=== PATIENT | male | born 1965 | race Caucasian/White ===

== ENCOUNTER 2020-11-24 16:52 | Emergency (ER) | payer SELFPAY ==
[2020-11-24 17:08] VITALS: BMI 48.8
[2020-11-24] MEDS ORDERED: ACETAMINOPHEN 1000 MG/100 ML VIAL IVPB ONE (19:38)
[2020-11-24] MEDS ORDERED: ACETAMINOPHEN INJECTION 100 ML IVPB ONE (19:41)
[2020-11-24 21:52] LABS: CHLORIDE 97 mmol/L (98-107); SODIUM 134 mmol/L (136-145)
[2020-11-24 21:57] LABS: ALBUMIN 3.7 g/dl (3.4-5.0); CALCIUM 9.4 mg/dL (8.5-10.1)
[2020-11-24 21:58] LABS: ANION GAP 12 MMOL/L (8-16); CO2 25 mmol/L (21-32); GLUCOSE,RANDOM 240 mg/dL (74-106)
[2020-11-24 22:00] LABS: BASO % 0.2 % (0-2.0); EOS % 0.1 % (0-4.5); HEMOGLOBIN 15.5 GM/dL (11.7-16.9); LYMPH % 8.2 % (8-40); MCH 33.8 pg (25.7-33.7); MCHC 35.1 g/dl (32.0-35.9); MEAN CELL VOLUME 96.1 fl (80-96); MEAN PLT VOLUME 9.6 fl (7.5-11.1); MONO % 5.5 % (3.8-10.2); PLATELET COUNT 187 10^3/uL (134-434); RBC 4.58 M/mm3 (4.00-5.60); RDW 13.3 % (11.9-15.9); SGPT/ALT 29 U/L (13-61); WHITE BLOOD COUNT 10.4 K/mm3 (4.0-10.0)
[2020-11-24 22:01] LABS: BILIRUBIN,TOTAL 0.9 mg/dL (0.2-1); CREATININE 0.7 mg/dL (0.55-1.3); SGOT/AST 19 U/L (15-37)
[2020-11-24 22:02] LABS: TOT PROT 8.7 g/dl (6.4-8.2)
[2020-11-24 22:03] LABS: ALK PHOS 99 U/L (45-117)
[2020-11-24 22:08] LABS: INR 1.04 (0.83-1.09); PROTHROMBIN TIME (PATIENT) 11.6 SEC (9.7-13.0)
[2020-11-24 22:11] LABS: ACTIVATED PTT 31.3 SECONDS (25.2-36.5)
[2020-11-24] MEDS ORDERED: morphine CARPU-JECT 2 MG/1 ML DISP.SYRIN IVPUSH ONE (22:20)
[2020-11-24] MEDS ORDERED: morphine SULFATE 4 MG/ML VIAL ONE (22:25)
[2020-11-25] MEDS ORDERED: morphine CARPU-JECT 4 MG/1 ML DISP.SYRIN IVPUSH ONE (05:36)
[2020-11-25] MEDS ORDERED: morphine SULFATE 4 MG/ML VIAL ONE (05:39)
[2020-11-25 05:54] VITALS: BP 132/98; PULSE 86; TEMP 97.8
== END 2020-11-25 05:53 | disposition short-term general hospital (02) ==
LOC: JER 16:52
PROC: 3E033GC Introduction of Other Therapeutic Substance into Peripheral Vein, Percutaneous Approach (ICD-10-PCS; principal; 2020-11-24)
DX: S22.41XA Multiple fractures of ribs, right side, initial encounter for closed fracture (principal); S09.90XA Unspecified injury of head, initial encounter; W10.8XXA Fall (on) (from) other stairs and steps, initial encounter
CPT/HCPCS: 36415; 70450-TC; 71250-TC; 80053; 84484; 85025; 85610; 85730; 93005; 93010; 99285-25; C9803; J0131; U0003; U0005

== ENCOUNTER 2023-10-06 19:13 | Emergency (ER) | payer OTHER ==
[2023-10-06 19:38] VITALS: BP 136/86; PULSE 87; RESP 15; TEMP 98.1; BMI 26.6
[2023-10-06] MEDS ORDERED: METOCLOPRAMIDE HCL INJECTION 10 MG/2 ML VIAL ONE (19:54)
[2023-10-06] MEDS ORDERED: ACETAMINOPHEN INJECTION 100 ML ONE (19:54)
[2023-10-06] MEDS: METOCLOPRAMIDE HCL INJECTION 10 MG/2 ML VIAL IVPB ONE (19:58)
[2023-10-06] MEDS: SODIUM CHLORIDE 1,000 ML IV STA (19:58)
[2023-10-06] MEDS: ACETAMINOPHEN 1000 MG/100 ML BAG IVPB ONE (19:58)
[2023-10-06 20:19] LABS: BASO % 1.1 % (0-2.0); EOS % 0.2 % (0-4.5); HEMATOCRIT 42.6 % (35.4-49); HEMOGLOBIN 15.1 GM/dL (11.7-16.9); MCH 32.9 pg (25.7-33.7); MCHC 35.3 g/dl (32.0-35.9); MEAN CELL VOLUME 93.2 fl (80-96); MEAN PLT VOLUME 7.6 fl (7.5-11.1); MONO % 5.9 % (3.8-10.2); NEUT % 64.8 % (42.8-82.8); PLATELET COUNT 167 10^3/uL (134-434); RBC 4.57 M/mm3 (4.00-5.60); RDW 13.9 % (11.9-15.9); WHITE BLOOD COUNT 6.9 K/mm3 (4.0-10.0)
[2023-10-06 20:44] LABS: POTASSIUM 3.5 mmol/L (3.5-5.1)
[2023-10-06 20:47] LABS: ALBUMIN 3.2 g/dl (3.4-5.0); CALCIUM 7.7 mg/dL (8.5-10.1)
[2023-10-06 20:51] LABS: CREATININE 0.6 mg/dL (0.55-1.3)
[2023-10-06 20:52] LABS: BILIRUBIN,TOTAL 0.7 mg/dL (0.2-1); TOT PROT 6.9 g/dl (6.4-8.2)
[2023-10-06] MEDS: CALCIUM 500MG/VIT-D 200 UNITS COMBO TABLET (FP) PO SCH (22:46)
[2023-10-06 23:42] LABS: HIV INTERPRETATION NEGATIVE (NEGATIVE)
== END 2023-10-06 23:48 | disposition home or self-care (01) ==
LOC: JER 19:13
PROC: 3E033NZ Introduction of Analgesics, Hypnotics, Sedatives into Peripheral Vein, Percutaneous Approach (ICD-10-PCS; principal; 2023-10-06)
PROC: 3E033GC Introduction of Other Therapeutic Substance into Peripheral Vein, Percutaneous Approach (ICD-10-PCS; 2023-10-06)
PROC: 3E0337Z Introduction of Electrolytic and Water Balance Substance into Peripheral Vein, Percutaneous Approach (ICD-10-PCS; 2023-10-06)
DX: S00.03XA Contusion of scalp, initial encounter (principal); F10.10 Alcohol abuse, uncomplicated; R42 Dizziness and giddiness; R11.0 Nausea; R51.9 Headache, unspecified; Y90.9 Presence of alcohol in blood, level not specified; W19.XXXA Unspecified fall, initial encounter
CPT/HCPCS: 36415; 70450-TC; 80053; 85025; 86803; 87389; 93005; 93010; 99285-25; J0131